=== PATIENT | female | born 2000 | race American Indian/Alaskan Native ===

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

== ENCOUNTER 2019-01-29 12:28 | Outpatient (CLI) | payer OTHER ==
[2019-01-29 13:03] VITALS: BP 98/59
[2019-01-29] MEDS ORDERED: LACTATED RINGERS 1,000 ML ONE (14:41)
[2019-01-29] MEDS ORDERED: LACTATED RINGERS 500 ML IV ONE (16:00)
[2019-01-29] MEDS ORDERED: VISTARIL PO ONE (17:19)
== END 2019-01-29 17:43 | disposition home or self-care (01) ==
LOC: TRG 12:28
PROVIDERS: ATTEND Obstetrics & Gynecology
DX: O62.9 Abnormality of forces of labor, unspecified (principal); Z3A.36 36 weeks gestation of pregnancy
CPT/HCPCS: J7120; Q0177

== ENCOUNTER 2019-02-12 00:29 | Observation (INO) | payer OTHER ==
[2019-02-12] MEDS ORDERED: LACTATED RINGERS 1,000 ML IV ONE (00:56)
[2019-02-12] MEDS ORDERED: BRETHINE ONE (02:23)
[2019-02-12] MEDS ORDERED: BRETHINE SUB-Q ONE (02:24)
--- NOTE | 2019-02-12 04:30 | Ultrasound Report ---
PROCEDURE: US OB BPP WO NON-STRESS TECHNIQUE: Sonographic evaluation for breathing, movement, tone, and amniotic flui d volume was performed. HISTORY: decrease movement COMPARISONS: None . FINDINGS: FETUS Amniotic fluid volume Normal-score 2. At least one vertical pocket >2 cm or more in vertical axis . breathing: Normal-score 2 . movement: Normal-score 2 . tone: Normal-score 2 . Score: 8 of 8 . IMPRESSION: Normal biophysical profile . This document is electronically signed by Evens Miner MD., February 12 2019 04:28:17 AM ET
--- NOTE | 2019-02-12 04:31 | Ultrasound Report ---
PROCEDURE: US OB LIMITED TECHNIQUE: Real-time limited sonographic examination was performed for evaluation of amniotic fluid. for each fetus with image documentation (1 or more fetuses). HISTORY: decrease movement COMPARISONS: None . FINDINGS: Amniotic fluid index is 18.4 cm. Fetus is in cephalic presentation. Heart rate is 138 bpm. IMPRESSION: Normal amniotic fluid volume. This document is electronically signed by Evens Miner MD., February 12 2019 04:29:29 AM ET
[2019-02-12 04:49] LABS: Hematocrit 27.3 % (30.3-42.9); Hemoglobin 9.2 gm/dl (10.1-14.3); Mean Corpuscular HGB Conc 34 % (30-34); Mean Corpuscular Volume 80 fl (79-97); Platelet Count 297 K/mm3 (140-440); Red Blood Count 3.42 M/mm3 (3.65-5.03); Red Cell Distribution Width 18.4 % (13.2-15.2)
--- NOTE | 2019-02-12 04:58 | Event Note ---
Date: 02/12/19 Late decelerations corrected with position change. Category 1 tracing at this time. Contractions q2-5 min, palpating moderate. SVE remains unchanged at 1/60/- 2. IBOW, vtx. Will continue to observe for labor and FHT monitoring.
[2019-02-12] MEDS ORDERED: LACTATED RINGERS 1,000 ML ONE (06:46)
--- NOTE | 2019-02-12 06:47 | Event Note ---
Date: 02/12/19 (false labor @ this time) SVE unchged after several hours of monitoring. BPP 8/8 CIERA 18 NST reactive Cat 1. Will give another 500 cc fluid, Morphine 4mg IM, regular diet. Pt will call her mom to come and pick her up. Reviewed early labor ctx, stressed to pt that if she has increased ctx, worsening pain, ruptured membranes, vag bleeding return to L&D. FKC and movement reviewed. Pt voiced understanding and agrees with plan. Pt has an OB appt for next week.
[2019-02-12] MEDS ORDERED: MORPHINE IM ONE ×2 (06:48→10:00)
[2019-02-12 08:36] VITALS: BP 98/55
== END 2019-02-12 10:50 | disposition home or self-care (01) ==
LOC: TRG 00:29 → LD 04:26
PROVIDERS: ADMIT Obstetrics & Gynecology; ATTEND Obstetrics & Gynecology
DX: O62.9 Abnormality of forces of labor, unspecified (principal); O36.8130 Decreased fetal movements, third trimester, not applicable or unspecified; Z3A.38 38 weeks gestation of pregnancy
CPT/HCPCS: 36415; 76815; 76819; 85027; 86592; 86850; 86900; 86901; 96372; G0378; J2270; J3105; J7120

== ENCOUNTER 2019-02-17 23:21 | Inpatient (IN) | payer OTHER ==
[2019-02-18] MEDS ORDERED: LACTATED RINGERS 1,000 ML ONE (00:23)
[2019-02-18] MEDS ORDERED: LACTATED RINGERS 1,000 ML IV SCH ×3 (01:00→19:00)
--- NOTE | 2019-02-18 05:44 | Ultrasound Report ---
PROCEDURE: US OB BPP WO NON-STRESS TECHNIQUE: Transabdominal imaging was obtained for evaluation of the biophysical profile. HISTORY: decels COMPARISONS: None FINDINGS: For breathing movements, a score of 2 out of 2 was obtained. For movements, a score of 2 out of 2 was obtained. For posture and tone, a score of 2 out of 2 was obtained. Qualitative amniotic fluid volume, a score of 2 out of 2 was obtained. The heart rate is 129 BPM. IMPRESSION: Biophysical profile score is 8 out of 8. The heart rate is 129 BPM.. This document is electronically signed by Xavi Brantley MD., February 18 2019 05:42:24 AM ET
--- NOTE | 2019-02-18 07:47 | History and Physical Report ---
History of Present Illness Date of examination: 02/18/19 Date of admission: 02/18/2019 Chief complaint: labor History of present illness: Menstrual History Regularity: regular Menses every: 30 days Duration: 4 LMP: 05/01/2018 LMP reliability: definite LMP character: normal test type: urine test Date: 07/01/2018 BC at conception: none Planned ? no EDC Calculations LMP: 02/05/2019 EDC Confirmation: 02/21/2019 Gestational Age: 31 3/7 weeks Past History : 1 Term Births: 0 Premature Births: 0 Living Children: 0 Para: 0 Mult. Births: 0 Prev : 0 Prev. attempt? 0 Aborta: 0 Elect. Ab: 0 Spont. Ab: 0 Ectopics: 0 Family History Summary: KERI - Has Family History of Diabetes - Entered On: 12/23/2018 Social History: Patient is single Smoking History: Patient has never smoked. Past Medical History: Negative Past Medical History Past Surgical History: Negative Past Surgical History Past Medical History Surgery (Non-diagnostic cardiac sonographer): Negative Past Surgical History Abnormal PAP: negative DALIA Exposure: negative Infertility: negative Uterine Anomaly: negative Uterine Surgery (not C/S): negative Other Gynecologic Problems: negative Social Hx: Patient is single Smoking History: Patient has never smoked. Infection History Hx of STD: none HIV Risk Eval: low risk Hepatitis B Risk Eval: low risk Personal hx. of genital herpes: no Partner hx. of genital herpes: no Rash, Viral, or Febrile illness since last LMP? no Varicella/Chicken Pox Status: Unknown TB Risk: no Genetic History Congenital Heart Defect: Mom: no Dad: no Michael Disease: Mom: no Dad: no Thalassemia Mom: no Dad: no Neural Tube Defect Mom: no Dad: no Down's Syndrome Mom: no Dad: no Alfredo-Sachs Mom: no Dad: no Sickle Cell Disease/Trait Mom: no Dad: no Hemophilia Mom: no Dad: no Muscular Dystrophy Mom: no Dad: no Cystic Fibrosis Mom: no Dad: no Zalma Chorea Mom: no Dad: no Mental Retardation Mom: no Dad: no Fragile X Mom: no Dad: no Other Genetic/Chromosomal Disorder Mom: no Dad: no Child w/other defect Mom: no Dad: no Enviromental Exposures Xray Exposure: no Medication, drug, or alcohol use since LMP: no Chemical/Other Exposure: no Exposure to Cat Liter: no Hx of Parvovirus (Fifth Disease): no Occupational Exposure to Children: none Active Medications: None Current Allergies (reviewed today): No known allergies Past History Past Medical History: other (see HPI) Past Surgical History: other (see HPI) CONDUCTOR AND ENGINEER History: other (see HPI) Family/Genetic History: other (see HPI) Social history: other (see HPI) - Obstetrical History Expected Date of Delivery: 02/21/19 Actual Gestation: 39 Week(s) 4 Day(s) : 2 Para: 0 Medications and Allergies Allergies Allergy/AdvReac Type Severity Reaction Status Date / Time No Known Allergies Allergy Verified 12/31/18 16:42 Home Medications Medication Instructions Recorded Confirmed Last Taken Type Vit-Fe Fumar-FA [ 1 tab PO QDAY 12/31/18 02/12/19 02/11/19 History Vitamin] Active Meds: Active Medications Butorphanol Tartrate (Stadol) 2 mg IV Q2H PRN PRN Reason: Pain , Severe (7-10) Ephedrine Sulfate (Ephedrine Sulfate) 10 mg IV Q2M PRN PRN Reason: Hypotension Fentanyl (Sublimaze) 100 mcg IV Q2H PRN PRN Reason: Labor Pain Oxytocin/Sodium Chloride (Pitocin/Ns 20 Unit/1000ml Drip) 20 units in 1,000 mls @ 125 mls/hr IV DIRECT DAVID Oxytocin/Sodium Chloride (Pitocin/Ns 30 Unit/500ml) 30 units in 500 mls @ 1 mls/hr IV TITR DAVID; Protocol Oxytocin/Sodium Chloride (Pitocin/Ns 30 Unit/500ml) 30 units in 500 mls @ 4 mls/hr IV TITR DAVID; Protocol Lactated Ringer's (Lactated Ringers) 1,000 mls @ 125 mls/hr IV DIRECT DAVID Lidocaine (Xylocaine 2%) 20 ml INFILTRATI ONCE ONE Stop: 02/18/19 07:36 Mineral Oil (Mineral Oil) 30 ml PO QHS PRN PRN Reason: Constipation Terbutaline Sulfate (Brethine) 0.25 mg SUB-Q ONCE PRN PRN Reason: Hyperstimulation/Hypertonicity Terbutaline Sulfate (Brethine) 0.25 mg IVP ONCE PRN PRN Reason: Hyperstimulation/Hypertonicity Review of Systems All systems: negative Genitourinary: contractions - Vital Signs Vital signs: Vital Signs Temp Pulse Resp BP 98.4 F 96 H 16 106/69 02/17/19 23:36 02/17/19 23:36 02/17/19 23:36 02/17/19 23:36 Temp Pulse Resp BP Pulse Ox 97.7 F 75 18 98/55 99 02/18/19 05:32 02/18/19 07:02 02/18/19 05:32 02/18/19 05:29 02/18/19 07:02 - Physical Exam Breasts: Cardiovascular: Regular rate, Normal S1, Normal S2 Lungs: Positive: Clear to auscultation, Normal air movement Abdomen: Positive: normal appearance, soft, normal bowel sounds. Negative: distention, tenderness Genitourinary (Female): Positive: normal external genitalia, normal perenium Vulva: both: normal Vagina: Positive: normal moisture. Negative: discharge Cervix: Negative: lesion, discharge Uterus: Positive: normal size, normal contour Adnexa: both: normal Anus/Rectum: Positive: normal perianal skin, heme negative. Negative: rectal mass, hemorrhoids Extremities: Positive: normal Deep Tendon Reflex Grade: Normal +2 - Obstetrical FHR: auscultation normal Uterine Contraction Monitor Mode: External Uterine Contraction Pattern: Irregular Uterine Tone Measurement Phase: Contraction Uterine Contraction Intensity: Mild Results Result Diagrams: 02/18/19 00:39 All other labs normal. Assessment and Plan Patient presents to triage with c/o contractions. Per coil winder repair, late decelerations noted on heart monitor. BPP ordered, 04/09. SVE per RN 1.5, vertex, IBOW, regular mild contractions noted. Per admitting CNM, pt being admitted for non-reassuring heart tracing and prodromal labor. Category 1 tracing noted at this time of assessment. She denies any VB or LOF. +FM. DWP reason for admission and reviewed heart tracing with patient and explained decelerations and causes. Discussed possibility of alternate route of delivery, , for distress. Patient verbalizes understanding. She agrees to proceed with pitocin induction. Routine admission orders placed in EMR. GBS negative. Dr. Turner aware of pt assessment and admission.
[2019-02-18] MEDS ORDERED: PITOCin/NS 30 UNIT/500ML 30 UNITS/500 ML BAG IV SCH ×2 (08:00→09:00)
[2019-02-18] MEDS ORDERED: PITOCin/NS 20 UNIT/1000ML DRIP 20 UNITS/1,000 ML BAG IV SCH ×2 (08:00→19:00)
[2019-02-18] MEDS ORDERED: SUBLIMAZE IV PRN (09:00)
[2019-02-18] MEDS ORDERED: BRETHINE IVP PRN (09:00)
[2019-02-18] MEDS ORDERED: XYLOCAINE 2% INFILTRATI NR (09:00)
[2019-02-18] MEDS ORDERED: MINERAL OIL PO PRN (09:00)
[2019-02-18] MEDS ORDERED: STADOL IV PRN (09:00)
[2019-02-18] MEDS ORDERED: BRETHINE SUB-Q PRN (09:00)
[2019-02-18 10:56] LABS: Hematocrit 29.8 % (30.3-42.9); Hemoglobin 9.6 gm/dl (10.1-14.3); Mean Corpuscular HGB Conc 32 % (30-34); Mean Corpuscular Volume 81 fl (79-97); Platelet Count 271 K/mm3 (140-440); Red Blood Count 3.68 M/mm3 (3.65-5.03); Red Cell Distribution Width 18.8 % (13.2-15.2)
--- NOTE | 2019-02-18 14:02 | Event Note ---
Date: 02/18/19 Pt reports SROM, clear fluid at 1200, nitrazine +, clear fluid noted on pt thighs and on exam glove. SVE is 2.5/70/-2, forebag noted, ruptured with amnihook for placement of internal monitors to better monitor decelerations and management of pitocin. DWP pros and cons of internal monitors, she agrees to placement. IUPC and FSE placed without difficulty. Late decerations continued, pitocin is off, pt placed in lateral position, LR fluid bolus and O2 on. Decelerations resolved with interventions, minimal variability noted. Dr. Turner notified of assessment. Will continue to monitor with pitocin off at this time. DWP again possibility of c/s delivery. Questions encouraged and answered. She verbalizes understanding.
[2019-02-18] MEDS ORDERED: NARCAN 2 MG/2 ML IV PRN (14:15)
[2019-02-18] MEDS ORDERED: fentaNYL-BUPIV 2 MCG/ML-0.125% 200 MCG/100 ML BAG EPIDURAL SCH (15:00)
[2019-02-18] MEDS ORDERED: MARCAINE 0.25% INFILTRATI ONE (15:16)
--- NOTE | 2019-02-18 15:57 | Event Note ---
Date: 02/18/19 tracing reviewed with patient explained the heart rate deceleration and it's indication of low oxygen and the indiction for giving her oxygen. Explained the reason for stopping pitocin due to the late decelerations and repeated late deceleration could case harm to her baby including learning and developmental disabilities, respiratory distress or even or . Patient states her desire to have a vaginal delivery. Recheck patient and replaced her FSE. cx 3.5/60/-3. Discussed indication for section. Patient informed the risks of the surgery include bleeding possibly bleeding heavy enough to require blood transfusion, infection possible damage to bowel bladder ureter. All questions answered. Patient agrees to proceed with a section. When I returned to her room with the surgery consent the patient's mother instructed her not to sign it. The patient's mother states that she could see the heart tracing and she knows that the baby's heart rate was fine. Again explained and patient and showed the patient and her mother the recurrent late decelerations on the heart rate paper tracing but again the mother stated that her interpretation of the tracings that the "the baby's heart rate is fine and not going down right now. Again try explain the the risks of accumulations of late deceleration but the patient's mother states that she knew better and would not allow the patient to proceed with the section now
[2019-02-18] MEDS ORDERED: ZOFRAN IV PRN (16:34)
[2019-02-18] MEDS ORDERED: MORPHINE IV PRN (16:34)
[2019-02-18] MEDS ORDERED: NARCAN 0.4 MG/1 ML IV PRN (16:34)
[2019-02-18] MEDS ORDERED: PHENERGAN PR PRN (16:34)
[2019-02-18] MEDS ORDERED: PHENERGAN PO PRN (16:34)
[2019-02-18] MEDS ORDERED: DILAUDID IV PRN (16:34)
--- NOTE | 2019-02-18 16:34 | Anesthesia Day of Surgery ---
Anesthesia Day of Surgery - Day of Surgery Patient Examined: Yes Patient H&P Reviewed: Yes Patient is NPO: No
--- NOTE | 2019-02-18 16:34 | Anesthesia Consultation ---
Anesthesia Consult and Med Hx Date of service: 02/18/19 - Airway Anesthetic Teeth Evaluation: Good ROM Head & Neck: Adequate Mental/Hyoid Distance: Adequate Mallampati Class: Class II Intubation Access Assessment: Good - Pulmonary Exam CTA: Yes - Cardiac Exam Cardiac Exam: RRR - Pre-Operative Health Status ASA Pre-Surgery Classification: ASA2 Proposed Anesthetic Plan: Epidural - Pulmonary Hx Asthma: No - Cardiovascular System Hx Hypertension: No - Central Nervous System Hx Seizures: No Hx Psychiatric Problems: No - Endocrine Hx Renal Disease: No Hx Hypothyroidism: No Hx Hyperthyroidism: No - Hematic Hx Anemia: No Hx Sickle Cell Disease: No - Other Systems Hx Alcohol Use: No
[2019-02-18] MEDS ORDERED: XYLOCAINE 2%/ EPI 1:200,000 INFILTRATI ONE (16:39)
[2019-02-18] MEDS ORDERED: SODIUM CHLORIDE FLUSH SYRINGE 10 ML IV NR (17:00)
--- NOTE | 2019-02-18 18:09 | Event Note ---
Date: 02/18/19 Reviewed heart tracing and recent late decelerations with patient again. Explained risks of continued late decelerations including, but not limited to: , decreased oxygenation to brain and intermediate brain damage/disturbed neurologic function - encephalopathy, damage to other organs, cerebral palsy, respiratory problems at , seizures, etc. Patient continues to refuse section. Reviewed surgical consent in detail with patient. Explained to patient that risks of surgery are increased in a stat situation, and we would rather perform surgery in a more calm and controlled environment. Encouraged questions and discussion, all patient's questions answered. Encouraged patient to read over consent. Patient agrees, states that she will read it and call RN or CNM to witness when she feels she is ready to sign. FHTs are back to category [address] Turner notified of FHT's, assessment, and discussion with patient. Will continue to monitor at this time.
[2019-02-18] MEDS ORDERED: BICITRA PO ONE (18:30)
[2019-02-18] MEDS ORDERED: REGLAN IV ONE (18:30)
[2019-02-18] MEDS ORDERED: PEPCID IV ONE ×2 (18:30→18:33)
[2019-02-18] MEDS ORDERED: BICITRA ONE (18:32)
[2019-02-18] MEDS ORDERED: REGLAN ONE (18:32)
[2019-02-18] MEDS ORDERED: ANCEF/STERILE WATER 2 GM/20 ML 2 GM/20 ML SYRINGE IV ONE (18:33)
[2019-02-18] MEDS ORDERED: NACL 0.9% IR ONE (18:40)
[2019-02-18] MEDS ORDERED: WATER FOR IRRIG STERILE IR ONE (18:40)
--- NOTE | 2019-02-18 18:43 | Event Note ---
Date: 02/18/19 Prolonged deceleration with no return to baseline despite pitocin off, multiple position changes, O2, LR bolus, scalp stimulation. SVE 4.5/90/-2. Patient verbalizes that she understands it is our recommendation that a section be performed stat at this time. Patient continues to refuse . Dr. Turner called to bedside. Ongoing discussion of risks to fetus with prolonged heart decelerations while position changes continued in attempts to increase heart rate. Dr. Turner arrived to bedside, continued discussion of risks to fetus with prolonged deceleration and need for , patient verbalizes that she understands risks involved. After more discussion, patient signing consents for . Nursing staff at bedside to assist with OR prep. Patient verbally agrees to proceed with , taken to OR via labor bed.
[2019-02-18] MEDS ORDERED: ANCEF/STERILE WATER 2 GM/20 ML 2 GM/20 ML SYRINGE IV NR (19:00)
[2019-02-18] MEDS ORDERED: DILAUDID ONE (19:22)
[2019-02-18] MEDS ORDERED: TORADOL ONE (19:24)
[2019-02-18] MEDS ORDERED: BENADRYL ONE (19:24)
[2019-02-18] MEDS ORDERED: ZOFRAN ONE (19:24)
--- NOTE | 2019-02-18 19:24 | Operative Report ---
Operative Report Operative Report: Date of procedure: 02/18/2019 Pre-operative diagnosis: Intrauterine at 39weeks with nonreassuring heart tracing remote from vaginal delivery Post-operative diagnosis: Same Procedure name(s): Primary low transverse section Surgeon: Ashwin Turner MD Transfer Specialist: Anesthesia: Epidural EBL: 500 mL Complications: None Findings: Patient with normal uterus tubes and ovaries bilaterally. Male infant weight 8 lbs. 14 oz. Apgars 7 at 1 minute and 8 at 5 minutes Specimen(s): Placenta Indications: Patient was admitted with concern of late decelerations and overall heart tracing. During the augmentation of her labor there were several occasions of late deceleration of heart tracing which required stopping the Pitocin. Patient also has spontaneous late decelerations without the infusion of Pitocin going. Several hours before the section was performed we had several conversations with the patient's about the indication for section. The patient had agreed to move forward with section due to the nonreassuring nature of the heart tracing but the patient's mother intervene and told her not to do it staying that the baby's heart rate was fine according to the patient's mother evaluation of the heart tracing. During this several hours delay of performing the procedure the heart tracing worsened with recurrent late decelerations and deepening of the decelerations. The patient finally decided to move forward with a section due to her concern about her unborn infant, despite the patient's mother's objections. Procedure: The patient was brought to the operating room in a stat manner. Her epidural was dosed was without any complications. She was then placed in left lateral tilt. Prepped and draped in the usual sterile manner. After testing for adequate anesthesia level, a Pfannenstiel incision was made. This incision was taken down to the fascia. The fascia was then nicked in the midline. This incision was extended out laterally with Moseley scissors. The fascia was then s eparated sharply and bluntly from the underlying rectus muscles. The rectus muscles were bluntly and sharply . The peritoneum was then entered with the horizontal resaw operator's fingers. This incision was spread vertically with care not to damage the bladder below. The Kevin self-retaining tractor was then placed without any difficulty. The bladder flap was then formed sharply and bluntly with Metzenbaum scissors. A transverse incision was made in lower uterine segment. This incision was extended laterally with the operators fingers. The amniotic sac was then entered bluntly with the horizontal resaw operator's fingers. The infant was delivered from the vertex position. Bulb suction on the mother's abdomen. Cord was double clamped and cut. The infant was then passed to the nursery personnel who were in attendance. The above scores were given by the nursery personnel. The placenta was then bluntly removed. The uterus was then externalized and wiped clean the remaining products. The uterine incision was closed in layers. The first incision was closed in a locking manner using 0 Vicryl. This was followed by imbricating stitch also with 0 Vicryl. This closure was hemostatic. The bladder flap was copiously irrigated and found to be hemostatic. The pelvis was copiously irrigated and found to be hemostatic. The uterus was then placed back to the patient's abdomen. The retractors were removed. The rectus muscles were inspected and found to be hemostatic. The fascia was then closed in a running manner using 0 Vicryl. This incision was hemostatic irrigation Bovie. The skin was reapproximated with 4-0 Vicryl subcuticularly. The patient tolerated procedure well. Her urine was clear. The was admitted to the nursery. The patient was accompanied to recovery room in good condition. Instrument count correct times 3.
--- NOTE | 2019-02-18 19:26 | Procedure Note ---
OB Delivery Note - Delivery Date of Delivery: 02/18/19 Surgeon: RUSLAN DUNBAR Estimated blood loss: 500cc - Section Preop diagnosis: nonreassuring FHR tracing Postop diagnosis: same section procedure: section, primary low transverse Disposition: PACU Complications: none - B at 1 minute: 7 at 5 minutes: 8 Gender: Male (8lbs 14oz)
--- NOTE | 2019-02-18 20:25 | Post Anesthesia Evaluation ---
- Post Anesthesia Evaluation Patient Participated: Yes Airway Patent: Yes Stable Respiratory Function: Yes Nausea/Vomiting: No Temp > 96.8F: Yes Pain Manageable: Yes Adequeate Hydration: Yes Anesthesia Complications: No Block Receding Appropriately: Yes Patient on Ventilator: No
[2019-02-19] MEDS ORDERED: D5LR 1,000 ML IV SCH (02:56)
[2019-02-19] MEDS ORDERED: MILK OF MAGNESIA PO PRN (02:56)
[2019-02-19] MEDS ORDERED: SODIUM CHLORIDE FLUSH SYRINGE 10 ML IV NR (02:56)
[2019-02-19] MEDS ORDERED: NORCO 5/325 PO PRN (02:56)
[2019-02-19] MEDS ORDERED: PITOCin/NS 20 UNIT/1000ML DRIP 20 UNITS/1,000 ML BAG IV SCH (02:56)
[2019-02-19] MEDS ORDERED: MYLICON PO PRN (02:56)
[2019-02-19] MEDS ORDERED: ZOFRAN IV PRN (02:56)
[2019-02-19] MEDS ORDERED: TUCKS PAD TP PRN (02:56)
[2019-02-19] MEDS ORDERED: ANUCORT-HC PR PRN (02:56)
[2019-02-19] MEDS ORDERED: LANSINOH TP PRN (02:56)
[2019-02-19] MEDS ORDERED: NARCAN 0.4 MG/1 ML IV PRN (02:56)
[2019-02-19] MEDS ORDERED: BOOSTRIX IM ONE (06:00)
[2019-02-19] MEDS: ANCEF/NS 1 GM/50 ML 1 GM/50 ML BAG IV SCH ×2 (06:10→13:53)
[2019-02-19 06:13] LABS: Hematocrit 23.5 % (30.3-42.9); Hemoglobin 7.8 gm/dl (10.1-14.3)
[2019-02-19] MEDS: TORADOL IV SCH ×2 (07:21→09:54)
--- NOTE | 2019-02-19 07:55 | Progress Note ---
Assessment and Plan 18y/o 1st day postop, c/o that PO pain medication is not helping reduce her pain to a manageable level. Will increase dose and continue to monitor. Pt seeming to be bonding well with , encouraged continue . Lochia scant, fundus firm, Dressing D&I. Continue postop pathway. - Patient Problems (1) delivery delivered Current Visit: Yes Status: Acute Plan to address problem: Advance diet and activity as tolerated remove dressing after shower Continue postop pathway (2) Anemia Current Visit: Yes Status: Acute Qualifiers: Anemia type: iron deficiency Plan to address problem: H&H 7.8/23.5 existing anemia from before delivery asymptomatic FE ordered Subjective - Subjective Date of service: 02/19/19 Principal diagnosis: postop day #1 s/p primary c/s Patient reports: appetite normal, voiding normally, flatus, pain poorly controlled, ambulating normally, no dizzy ambulation, no nauseated [place]: doing well, nursing well Objective - Vital Signs Latest vital signs: Vital Signs Temp Pulse Resp BP Pulse Ox 02/19/19 07:10 18 02/19/19 06:10 18 02/19/19 04:39 106 H 20 120/78 72 L 02/19/19 04:30 98.4 F 02/18/19 23:12 18 02/18/19 22:42 18 02/18/19 21:03 98.2 F 96 H 20 117/76 100 02/18/19 20:40 97.8 F 97 H 16 98/63 100 02/18/19 20:25 92 H 10 L 108/63 100 02/18/19 20:10 74 13 97/63 100 02/18/19 19:57 89 17 87/50 100 02/18/19 19:45 78 16 94/57 100 02/18/19 19:37 98.0 F 85 19 85/49 100 02/18/19 18:29 94 H 99 02/18/19 18:28 86 125/74 02/18/19 18:24 102 H 100 02/18/19 18:19 77 100 02/18/19 18:14 77 120/74 100 02/18/19 18:09 76 100 02/18/19 18:04 73 100 02/18/19 17:59 87 100 06/19/19 17:58 73 110/68 02/18/19 17:54 72 100 02/18/19 17:49 69 100 02/18/19 17:44 77 100 02/18/19 17:43 72 113/71 02/18/19 17:39 78 100 02/18/19 17:34 77 100 02/18/19 17:29 71 100 02/18/19 17:24 64 100 02/18/19 17:19 71 100 02/18/19 17:14 66 100 02/18/19 17:09 85 100 02/18/19 17:04 72 100 02/18/19 17:00 98.3 F 18 02/18/19 16:59 76 100 02/18/19 16:54 72 100 02/18/19 16:49 77 100 02/18/19 16:44 75 100 02/18/19 16:39 69 100 02/18/19 16:34 71 100 02/18/19 16:29 70 100 02/18/19 16:24 71 100 02/18/19 16:19 81 100 02/18/19 16:14 73 100 02/18/19 16:09 79 100 02/18/19 16:04 93 H 100 02/18/19 15:59 86 100 02/18/19 15:54 87 100 02/18/19 15:49 86 100 02/18/19 15:44 89 100 02/18/19 15:39 74 101/56 100 02/18/19 15:30 97.9 F 16 02/18/19 15:09 74 100 02/18/19 15:04 73 100 02/18/19 14:59 74 100 02/18/19 14:54 98 H 100 02/18/19 14:49 81 100 02/18/19 14:44 73 100 02/18/19 14:39 93 H 100 02/18/19 14:28 94 H 92 02/18/19 14:23 76 96 02/18/19 14:18 77 100 02/18/19 14:13 53 L 61 L 02/18/19 14:08 77 100 02/18/19 14:03 77 100 02/18/19 13:58 90 100 02/18/19 13:26 89 100 02/18/19 13:20 74 100 02/18/19 13:16 83 100 02/18/19 13:10 81 100 02/18/19 13:06 84 100 02/18/19 13:00 98.0 F 79 18 100 02/18/19 12:56 93 H 100 02/18/19 12:50 98 H 100 02/18/19 12:46 94 H 100 02/18/19 12:40 90 100 02/18/19 12:36 69 100 02/18/19 12:34 83 111/72 02/18/19 12:31 97 H 100 02/18/19 12:26 87 100 02/18/19 12:20 80 100 02/18/19 12:04 75 111/75 02/18/19 11:56 74 99 02/18/19 11:55 27 L 02/18/19 11:50 68 100 02/18/19 11:44 71 95 02/18/19 11:40 79 100 02/18/19 11:34 81 112/75 100 02/18/19 11:30 98.4 F 80 18 97 02/18/19 11:29 77 92 02/18/19 11:23 73 100 02/18/19 11:18 79 99 02/18/19 11:13 71 100 02/18/19 11:08 71 100 02/18/19 11:04 79 100 02/18/19 10:54 71 100 02/18/19 10:51 98.2 F 16 02/18/19 10:49 73 100 02/18/19 10:44 72 100 02/18/19 10:39 84 100 02/18/19 10:34 76 100 02/18/19 10:29 88 100 02/18/19 10:25 77 100 02/18/19 10:20 82 100 02/18/19 10:14 89 100 02/18/19 10:09 77 100 02/18/19 10:04 73 100 02/18/19 10:00 75 100 02/18/19 09:54 76 100 02/18/19 09:49 94 H 100 02/18/19 09:45 99 H 100 02/18/19 09:39 87 100 02/18/19 09:34 81 100 02/18/19 09:29 81 99 02/18/19 09:26 81 117/82 02/18/19 09:24 54 L 94 Intake and Output 02/18/19 02/18/19 02/19/19 15:59 23:59 07:59 Intake Total 10 300 240 Output Total 300 230 Balance -290 70 240 Intake: IV 10 300 PITOCin/NS 30 UNIT/500ML 10 30 units In 500 ml @ 4 mls/hr IV TITR DAVID Rx#: [id number] Oral 240 Output: Urine 300 230 Uretheral (Fleming) 300 200 Other: Total, Intake Amount 240 Estimated Blood Loss 400 - Exam Breasts: Present: normal Cardiovascular: Present: Regular rate Lungs: Present: Clear to auscultation, Normal air movement Abdomen: Present: normal appearance, soft Vulva: both: normal Uterus: Present: normal, firm, fundal height at umbilicus Extremities: Present: normal Deep Tendon Reflex Grade: Normal +2 Incision: Present: normal, dry, dressed - Labs Labs: Abnormal lab results 02/18/19 02/19/19 Range/Units 00:39 05:53 Hgb 9.6 L 7.8 L (10.1-14.3) gm/dl Hct 29.8 L 23.5 L D (30.3-42.9) % MCH 26 L (28-32) pg RDW 18.8 H (13.2-15.2) %
[2019-02-19] MEDS: FEOSOL PO SCH (09:55)
[2019-02-19] MEDS: IBUPROFEN PO PRN ×2 (17:09→23:45)
[2019-02-19] MEDS: NORCO 5/325 PO PRN ×2 (17:10→23:46)
[2019-02-20] MEDS: IBUPROFEN PO PRN (05:49)
--- NOTE | 2019-02-20 08:50 | Progress Note ---
Subjective - Subjective Date of service: 02/20/19 Principal diagnosis: postop day #2 s/p primary c/s Interval history: Menstrual History Regularity: regular Menses every: 30 days Duration: 4 LMP: 05/01/2018 LMP reliability: definite LMP character: normal test type: urine test Date: 07/01/2018 BC at conception: none Planned ? no EDC Calculations LMP: 02/05/2019 EDC Confirmation: 02/21/2019 Gestational Age: 31 3/7 weeks Past History : 1 Term Births: 0 Premature Births: 0 Living Children: 0 Para: 0 Mult. Births: 0 Prev : 0 Prev. attempt? 0 Aborta: 0 Elect. Ab: 0 Spont. Ab: 0 Ectopics: 0 Family History Summary: KERI - Has Family History of Diabetes - Entered On: 12/23/2018 Social History: Patient is single Smoking History: Patient has never smoked. Past Medical History: Negative Past Medical History Past Surgical History: Negative Past Surgical History Past Medical History Surgery (Non-travel nurse): Negative Past Surgical History Abnormal PAP: negative DALIA Exposure: negative Infertility: negative Uterine Anomaly: negative Uterine Surgery (not C/S): negative Other Gynecologic Problems: negative Social Hx: Patient is single Smoking History: Patient has never smoked. Infection History Hx of STD: none HIV Risk Eval: low risk Hepatitis B Risk Eval: low risk Personal hx. of genital herpes: no Partner hx. of genital herpes: no Rash, Viral, or Febrile illness since last LMP? no Varicella/Chicken Pox Status: Unknown TB Risk: no Genetic History Congenital Heart Defect: Mom: no Dad: no Michael Disease: Mom: no Dad: no Thalassemia Mom: no Dad: no Neural Tube Defect Mom: no Dad: no Down's Syndrome Mom: no Dad: no Alfredo-Sachs Mom: no Dad: no Sickle Cell Disease/Trait Mom: no Dad: no Hemophilia Mom: no Dad: no Muscular Dystrophy Mom: no Dad: no Cystic Fibrosis Mom: no Dad: no [place] Chorea Mom: no Dad: no Mental Retardation Mom: no Dad: no Fragile X Mom: no Dad: no Other Genetic/Chromosomal Disorder Mom: no Dad: no Child w/other defect Mom: no Dad: no Enviromental Exposures Xray Exposure: no Medication, drug, or alcohol use since LMP: no Chemical/Other Exposure: no Exposure to Cat Liter: no Hx of Parvovirus (Fifth Disease): no Occupational Exposure to Children: none Active Medications: None Current Allergies (reviewed today): No known allergies Patient reports: appetite normal, voiding normally, pain well controlled, flatus, ambulating normally [place]: doing well Objective - Vital Signs Latest vital signs: Vital Signs Temp Pulse Resp BP Pulse Ox 02/20/19 05:49 20 02/19/19 23:48 98.2 F 78 20 105/63 99 02/19/19 23:46 20 02/19/19 23:45 20 02/19/19 17:10 20 02/19/19 17:09 20 02/19/19 16:23 98.1 F 89 20 115/82 100 02/19/19 11:42 98.2 F 100 H 20 105/71 100 02/19/19 09:54 20 Intake and Output 02/19/19 02/20/19 02/20/19 23:59 07:59 15:59 Intake Total 120 240 Balance 120 240 Intake: Oral 120 240 Other: Total, Intake Amount 120 240 # Voids Void 1 1 - Exam Breasts: Present: normal Cardiovascular: Present: Regular rate, Normal S1, Normal S2 Lungs: Present: Clear to auscultation, Normal air movement Abdomen: Present: normal appearance, soft, normal bowel sounds Vulva: both: normal Uterus: Present: normal, firm, fundal height below umbilicus Extremities: Present: normal Deep Tendon Reflex Grade: Normal +2 Incision: Present: normal, dry, intact Comments: POD 2 s/p primary c/s. Patient reports feeling well, denies any complaints or concerns at this time. Patient reports "I have no pain". Fundus is firm, ML, U/2. Vaginal bleeding is scant, patient denies any heavy bleeding or clots. Incision is well-approximated, healing well, no bleeding or drainage, no s/s of infection. Steri strips in place. DWP proper hygiene/incision care. She reports breast and bottle feeding, denies any breast complaints. VSSAF. Reviewed post delivery labs with patient. She denies any dizziness or feeling faint with ambulation or position changes. She desires discharge today.
--- NOTE | 2019-02-20 08:55 | Discharge Summary ---
Providers - Providers Date of Admission: 02/18/19 09:23 Date of discharge: 02/20/19 (pt desires d/c, may discharge home 48 hrs post delivery) Attending physician: BRANDON TAYLOR 02/19/19 02:56 Consult to Parole Supervisor [CONS] Routine Reason For Exam: Primary care physician: JOHAN WALL Hospitalization Reason for admission: non reassuring heart tracing, prodromal labor Condition: Good Pertinent studies: post delivery H&H 7.8/23.5, pre-existing anemia on admission exacerbated by acute blood loss at delivery. pt is asymptomatic, Fe ordered. Procedures: primary c/s for non reassuring heart tracing Hospital course: uncomplicated primary c/s and course Disposition: DC-01 TO HOME OR SELFCARE Core Measure Documentation - Palliative Care Palliative Care/ Comfort Measures: Not Applicable - Core Measures Any of the following diagnoses?: none Exam - Constitutional Vitals: Temp Pulse Resp BP Pulse Ox 98.2 F 78 20 105/63 99 02/19/19 23:48 02/19/19 23:48 02/20/19 05:49 02/19/19 23:48 02/19/19 23:48 General appearance: Present: no acute distress, well-nourished - EENT Eyes: Present: PERRL ENT: hearing intact, clear oral mucosa - Neck Neck: Present: supple, normal ROM - Respiratory Respiratory effort: normal Respiratory: bilateral: CTA - Cardiovascular Heart Sounds: Present: S1 & S2. Absent: rub, click - Extremities Extremities: pulses symmetrical, No edema Peripheral Pulses: within normal limits - Abdominal General gastrointestinal: Present: soft, non-tender, non-distended, normal bowel sounds Female genitourinary: Present: normal - Integumentary Integumentary: Present: clear, warm, dry - Musculoskeletal Musculoskeletal: gait normal, strength equal bilaterally - Psychiatric Psychiatric: appropriate mood/affect, intact judgment & insight - Neurologic Neurologic: CNII-XII intact, moves all extremities - Additional findings Additional findings: POD 2 s/p primary c/s. Patient reports feeling well, denies any complaints or concerns at this time. Patient reports "I have no pain". Fundus is firm, ML, U/2. Vaginal bleeding is scant, patient denies any heavy bleeding or clots. Incision is well-approximated, healing well, no bleeding or drainage, no s/s of infection. Steri strips in place. DWP proper hygiene/incision care. She reports breast and bottle feeding, denies any breast complaints. VSSAF. Reviewed post delivery labs with patient. She denies any dizziness or feeling faint with ambulation or position changes. She desires discharge today. Plan Activity: advance as tolerated Diet: regular Wound: open to air, keep clean and dry Follow up with: JOHAN WALL MD [Primary Care Provider] - 7 Days (Congratulations! Please call [phone] to schedule your post-op incision check in 1 week. Please sc hedule your son's incision check in 1 week. Bring EMLA cream prescription with you to his appointment and await further instructions for use. Call with any questions or concerns. ) Prescriptions: Docusate Sodium [Colace] 100 mg PO BID PRN #60 capsule PRN Reason: Constipation Ferrous Sulfate [Feosol 325 MG tab] 325 mg PO BID #60 tablet Ibuprofen [Motrin 800 MG tab] 800 mg PO Q6H PRN #30 tablet PRN Reason: Pain
[2019-02-20] MEDS ORDERED: COLACE PO SCH (10:00)
[2019-02-20] MEDS: FEOSOL PO SCH (17:15)
[2019-02-20] MEDS: NORCO 5/325 PO PRN (17:41)
[2019-02-20 17:43] VITALS: BP 110/71
== END 2019-02-20 18:59 | disposition home or self-care (01) | DRG 765 ==
LOC: TRG 23:21 → LD 02-18 09:23 → OB 02-18 21:14
PROVIDERS: ADMIT Obstetrics & Gynecology; ATTEND Obstetrics & Gynecology
PROC: 10D00Z1 Extraction of Products of Conception, Low, Open Approach (ICD-10-PCS; principal; 2019-02-18)
PROC: 10H07YZ Insertion of Other Device into Products of Conception, Via Natural or Artificial Opening (ICD-10-PCS; 2019-02-18)
PROC: 3E0234Z Introduction of Serum, Toxoid and Vaccine into Muscle, Percutaneous Approach (ICD-10-PCS; 2019-02-19)
DX: O76 Abnormality in fetal heart rate and rhythm complicating labor and delivery (principal); D62 Acute posthemorrhagic anemia; O99.02 Anemia complicating childbirth; D50.9 Iron deficiency anemia, unspecified; Z3A.39 39 weeks gestation of pregnancy; Z37.0 Single live birth; Z83.3 Family history of diabetes mellitus; Z23 Encounter for immunization
CPT/HCPCS: 36415; 76819; 85014; 85018; 85027; 86592; 86850; 86900; 86901; 88307; 90715; G0378; J0690; J1170; J1200; J1885; J2405; J2590; J2765; J3010; J7120; J7121

== ENCOUNTER 2019-05-06 21:38 | Emergency (ER) | payer MEDICAID, OTHER ==
--- NOTE | 2019-05-06 21:45 | Emergency Department Report ---
Blank Doc - Documentation Documentation: This is a 18-year-old female that presents with right finger parenchyma. This initial assessment/diagnostic orders/clinical plan/treatment(s) is/are subject to change based on patient's health status, clinical progression and re- assessment by fellow clinical providers in the ED. Further treatment and workup at subsequent clinical providers discretion. Patient/guardians urged not to elope from the ED as their condition may be serious if not clinically assessed and managed. Initial orders include: 1- Patient sent to [facility] for further evaluation and treatment
[2019-05-06] MEDS ORDERED: KEFLEX PO ONE (23:23)
[2019-05-06] MEDS ORDERED: IBUPROFEN PO ONE (23:23)
[2019-05-06] MEDS ORDERED: XYLOCAINE 1% MPF 5 mL INFILTRATI ONE (23:23)
--- NOTE | 2019-05-06 23:56 | Emergency Department Report ---
ED Extremity Problem HPI - General Chief complaint: Extremity Problem,Nontraumatic Stated complaint: RT FINGER SWOLLEN Time Seen by Provider: 05/06/19 21:44 Source: patient Mode of arrival: Ambulatory Limitations: No Limitations - History of Present Illness Initial comments: Patient is a 18-year-old -[place]is[place] female with no past medical history w ho presents to the ED with painful swollen erythematous rash with fluctuance on his right middle finger for the last 4 days. Patient states that the pain and swelling have worsened in the last 2 days. Patient admits to a habitual fingernail biting behavior and suspect this may have come from biting her fingernails. Patient denies fever, chills, nausea, vomiting, traumatic injury, dizziness, numbness and tingling or weakness of her right middle finger. MD Complaint: extremity pain (right middle finger swelling and rash), extremity swelling (right middle finger swelling, pain and rash) -: Sudden, days(s) (4) Location: right (right middle finger) History of Same: No -: No arthralgia, No fever, No associated dyspnea, No associated chest pain Radiation: distal (distal right middle finger swelling and pain) Severity scale (0 -10): 4 Quality: aching, sharp, constant Consistency: constant Improves with: nothing Worsens with: nothing Associated Symptoms: denies other symptoms - Related Data Home Medications Medication Instructions Recorded Confirmed Last Taken Vit-Fe Fumar-FA [ 1 tab PO QDAY 12/31/18 02/19/19 02/11/19 Vitamin] Previous Rx's Medication Instructions Recorded Last Taken Type Ibuprofen [Motrin 800 MG tab] 800 mg PO Q6H PRN #30 tablet 02/18/19 Unknown Rx Docusate Sodium [Colace] 100 mg PO BID PRN #60 capsule 02/20/19 Unknown Rx Ferrous Sulfate [Feosol 325 MG tab] 325 mg PO BID #60 tablet 02/20/19 Unknown Rx Ibuprofen [Motrin] 600 mg PO Q8H PRN #20 tablet 05/06/19 Unknown Rx cephALEXin [Keflex] 500 mg PO Q8HR #30 cap 05/06/19 Unknown Rx Allergies Allergy/AdvReac Type Severity Reaction Status Date / Time No Known Allergies Allergy Verified 12/31/18 16:42 ED Review of Systems ROS: Stated complaint: RT FINGER SWOLLEN Other details as noted in HPI Constitutional: denies: chills, fever Eyes: denies: eye pain, eye discharge, vision change ENT: denies: ear pain, throat pain Respiratory: denies: cough, shortness of breath, wheezing Cardiovascular: denies: chest pain, palpitations Endocrine: no symptoms reported Gastrointestinal: denies: abdominal pain, nausea, diarrhea Genitourinary: denies: urgency, dysuria, discharge Musculoskeletal: arthralgia (right middle finger pain and swelling). denies: back pain, joint swelling Skin: rash (erythematous swollen fluctuant maculopapular rash on distal right middle finger). denies: lesions Neurological: denies: headache, weakness, paresthesias Psychiatric: denies: anxiety, depression Hematological/Lymphatic: denies: easy bleeding, easy bruising ED Past Medical Hx - Past Medical History Previous Medical History?: No Hx Hypertension: No Hx Diabetes: No Hx Deep Vein Thrombosis: No Hx Renal Disease: No Hx Sickle Cell Disease: No Hx Seizures: No Hx Asthma: No Hx HIV: No - Surgical History Past Surgical History?: No - Social History Smoking Status: Never Smoker Substance Use Type: None - Medications Home Medications: Home Medications Medication Instructions Recorded Confirmed Last Taken Type Vit-Fe Fumar-FA [ 1 tab PO QDAY 12/31/18 02/19/19 02/11/19 History Vitamin] Ibuprofen [Motrin 800 MG tab] 800 mg PO Q6H PRN #30 tablet 02/18/19 Unknown Rx Docusate Sodium [Colace] 100 mg PO BID PRN #60 capsule 02/20/19 Unknown Rx Ferrous Sulfate [Feosol 325 MG tab] 325 mg PO BID #60 tablet 02/20/19 Unknown Rx Ibuprofen [Motrin] 600 mg PO Q8H PRN #20 tablet 05/06/19 Unknown Rx cephALEXin [Keflex] 500 mg PO Q8HR #30 cap 05/06/19 Unknown Rx ED Physical Exam - General Limitations: No Limitations General appearance: alert, in no apparent distress - Head Head exam: Present: atraumatic, normocephalic, normal inspection - Eye Eye exam: Present: normal appearance, PERRL, EOMI Pupils: Present: normal accommodation - ENT ENT exam: Present: normal exam, normal orophraynx, mucous membranes moist, TM's normal bilaterally, normal external ear exam - Neck Neck exam: Present: normal inspection, full ROM - Respiratory Respiratory exam: Present: normal lung sounds bilaterally. Absent: respiratory distress, wheezes, rales, rhonchi, chest wall tenderness, accessory muscle use, decreased breath sounds, prolonged expiratory - Cardiovascular Cardiovascular Exam: Present: regular rate, normal rhythm, normal heart sounds. Absent: systolic murmur, diastolic murmur, rubs, gallop - GI/Abdominal GI/Abdominal exam: Present: soft, normal bowel sounds. Absent: distended, tenderness, rebound, hyperactive bowel sounds, hypoactive bowel sounds, mass, bruit - Rectal Rectal exam: Present: deferred - Extremities Exam Extremities exam: Present: normal inspection, full ROM, tenderness (swollen tender erythematous fluctuant maculopapular rash on distal right middle finger), normal capillary refill, joint swelling - Back Exam Back exam: Present: normal inspection, full ROM. Absent: tenderness, CVA tenderness (R), CVA tenderness (L), muscle spasm, vertebral tenderness - Neurological Exam Neurological exam: Present: alert, oriented X3, CN II-XII intact, normal gait, reflexes normal - Psychiatric Psychiatric exam: Present: normal affect, normal mood - Skin Skin exam: Present: warm, dry, intact, normal color, rash (Erythematous maculo papular rash on distal right middle finger) ED Course Vital Signs 05/06/19 05/06/19 21:44 23:32 Temperature 98.2 F Pulse Rate 97 H Respiratory 16 16 Rate Blood Pressure 105/61 O2 Sat by Pulse 97 Oximetry - Reevaluation(s) Reevaluation #1: 05/07/19 00:07 Patient is a 18 yo AA female who presents to the ED with swollen erythematous painful rash on distal right middle finger for the last 4 days. Patient is alert and oriented x 3 and is in no acute distress. Patient was treated for pain and received initial oral antibiotic dose. The distal right middle finger rash was incised and drained protocol and the patient tolerated the procedure well. The wound was then dressed appropriately and the patient discharged home in medications and antibiotics and advised to follow-up with her primary care physician in 7-10 days for reevaluation. Patient was advised to return to the ED immediately if symptoms get worse. - I & D Right Distal Finger Type of Procedure: Simple Site: Distal right middle finger Blade Size: 11 I & D Procedure: betadine prep, sterile drapes applied, sterile dressing applied, gauze wick placed Progress: Patient tolerated procedure well. Wound dressed appropriately and patient discharged home on pain medications and oral antibiotics. Patient neurovascularly intact after procedure. ED Medical Decision Making - Medical Decision Making Patient is a 18 yo AA female who presents to the ED with swollen erythematous painful rash on distal right middle finger for the last 4 days. Patient is alert and oriented x 3 and is in no acute distress. Patient was treated for pain and received initial oral antibiotic dose. The distal right middle finger rash was incised and drained protocol and the patient tolerated the procedure well. The wound was then dressed appropriately and the patient discharged home in medications and antibiotics and advised to follow-up with her primary care physician in 7-10 days for reevaluation. Patient was advised to return to the ED immediately if symptoms get worse. - Differential Diagnosis cellulitis of finger; Paronychia of right middle finger Critical care attestation.: If time is entered above; I have spent that time in minutes in the direct care of this critically ill patient, excluding procedure time. ED Disposition Clinical Impression: Paronychia of right middle finger, Cellulitis of right middle finger Disposition: DC-01 TO HOME OR SELFCARE Is pt being admited?: No Does the pt Need Aspirin: No Condition: Stable Instructions: Paronychia (ED), Cellulitis (ED) Additional Instructions: Take medications with food, drink plenty of fluids and follow-up with your primary care physician in 7-10 days for reevaluation. Return to the ED immediately if symptoms get worse. Prescriptions: cephALEXin [Keflex] 500 mg PO Q8HR #30 cap Ibuprofen [Motrin] 600 mg PO Q8H PRN #20 tablet PRN Reason: Pain Referrals: PRIMARY CARE, [Primary Care Provider] - 3-5 Days Time of Disposition: 23:50 Print Language: [place]
[2019-05-07 00:25] VITALS: BP 110/62
== END 2019-05-07 00:25 | disposition home or self-care (01) ==
LOC: ED 21:38
DX: L03.011 Cellulitis of right finger (principal); Z79.899 Other long term (current) drug therapy
CPT/HCPCS: 99282

== ENCOUNTER 2021-12-03 03:13 | Emergency (ER) | payer MEDICAID ==
--- NOTE | 2021-12-03 03:26 | Emergency Department Report ---
ED Female HPI - General Chief complaint: Vaginal Bleeding Stated complaint: BLEEDING 6 WKS Source: patient Mode of arrival: Ambulatory Limitations: No Limitations - History of Present Illness Initial comments: Patient is a A0 21-year-old -[place] female who is approximately 6 weeks gestation presents to the ED with acute onset persistent suprapubic pain and vaginal bleeding for the last 3 hours. Patient states that she did an IVF implantation on November 08, 2021. Patient states that the bleeding has been persistent and is spotting. Patient denies dizziness, syncope, nausea and vomiting, low back pain, dysuria, urinary frequency and urgency, vaginal discharge, fever and chills. MD Complaint: vaginal bleeding, pelvic pain -: Sudden, hour(s) (3) Location: suprapubic, other (Vaginal) Radiation: non-radiating Severity: moderate Severity scale (0 -10): 3 Quality: cramping, dull Consistency: intermittent Improves with: none Worsens with: none Are you Now?: Yes (Approximately 5 to 6 weeks gestation) Associated Symptoms: denies other symptoms, vaginal bleeding, abdominal pain (Suprapubic pain). denies: vaginal discharge, nausea/vomiting, fever/chills, headaches, loss of appetite, dysuria, hematuria, rash, shortness of breath, syncope, weakness, other - Related Data Sexually active: Yes : 2 Para: 1 A: 0 Home Medications Medication Instructions Recorded Confirmed Last Taken Vit-Fe Fumar-FA [ 1 tab PO QDAY 12/31/18 02/19/19 02/11/19 Vitamin] Previous Rx's Medication Instructions Recorded Last Taken Type Ibuprofen [Motrin 800 MG tab] 800 mg PO Q6H PRN #30 tablet 02/18/19 Unknown Rx Docusate Sodium [Colace] 100 mg PO BID PRN #60 capsule 02/20/19 Unknown Rx Ferrous Sulfate [Feosol 325 MG tab] 325 mg PO BID #60 tablet 02/20/19 Unknown Rx Ibuprofen [Motrin] 600 mg PO Q8H PRN #20 tablet 05/06/19 Unknown Rx cephALEXin [Keflex] 500 mg PO Q8HR #30 cap 05/06/19 Unknown Rx Allergies Allergy/AdvReac Type Severity Reaction Status Date / Time No Known Allergies Allergy Verified 12/31/18 16:42 ED Review of Systems ROS: Stated complaint: BLEEDING 6 WKS Other details as noted in HPI Constitutional: denies: chills, fever Eyes: denies: eye pain, eye discharge, vision change ENT: denies: ear pain, throat pain Respiratory: denies: cough, shortness of breath, wheezing Cardiovascular: denies: chest pain, palpitations Endocrine: no symptoms reported Gastrointestinal: abdominal pain (Suprapubic pain). denies: nausea, vomiting, diarrhea, hematochezia Genitourinary: abnormal menses (Vaginal bleeding). denies: urgency, dysuria, discharge Musculoskeletal: denies: back pain, joint swelling, arthralgia Skin: denies: rash, lesions Neurological: denies: headache, weakness, paresthesias Psychiatric: denies: anxiety, depression Hematological/Lymphatic: denies: easy bleeding, easy bruising ED Past Medical Hx - Past Medical History Hx Hypertension: No Hx Diabetes: No Hx Deep Vein Thrombosis: No Hx Renal Disease: No Hx Sickle Cell Disease: No Hx Seizures: No Hx Asthma: No Hx HIV: No - Social History Smoking Status: Never Smoker Substance Use Type: None - Medications Home Medications: Home Medications Medication Instructions Recorded Confirmed Last Taken Type Vit-Fe Fumar-FA [ 1 tab PO QDAY 12/31/18 02/19/19 02/11/19 History Vitamin] Ibuprofen [Motrin 800 MG tab] 800 mg PO Q6H PRN #30 tablet 02/18/19 Unknown Rx Docusate Sodium [Colace] 100 mg PO BID PRN #60 capsule 02/20/19 Unknown Rx Ferrous Sulfate [Feosol 325 MG tab] 325 mg PO BID #60 tablet 02/20/19 Unknown Rx Ibuprofen [Motrin] 600 mg PO Q8H PRN #20 tablet 05/06/19 Unknown Rx cephALEXin [Keflex] 500 mg PO Q8HR #30 cap 05/06/19 Unknown Rx ED Physical Exam - General Limitations: No Limitations General appearance: alert, in no apparent distress - Head Head exam: Present: atraumatic, normocephalic, normal inspection - Eye Eye exam: Present: normal appearance, PERRL, EOMI Pupils: Present: normal accommodation - ENT ENT exam: Present: normal exam, normal orophraynx, mucous membranes moist, TM's normal bilaterally, normal external ear exam - Neck Neck exam: Present: normal inspection, full ROM. Absent: tenderness - Respiratory Respiratory exam: Present: normal lung sounds bilaterally. Absent: respiratory distress, wheezes, rales, rhonchi, chest wall tenderness, accessory muscle use - Cardiovascular Cardiovascular Exam: Present: regular rate, normal rhythm, normal heart sounds. Absent: systolic murmur, diastolic murmur, rubs, gallop - GI/Abdominal GI/Abdominal exam: Present: soft, tenderness (Palpable mild suprapubic tenderness), normal bowel sounds. Absent: guarding, rebound, rigid, hyperactive bowel sounds, hypoactive bowel sounds, organomegaly, mass - Bi-manual exam: Present: other (Pelvic exam deferred at this time, patient steroids) - Extremities Exam Extremities exam: Present: normal inspection, full ROM, normal capillary refill. Absent: tenderness - Back Exam Back exam: Present: normal inspection, full ROM. Absent: tenderness, CVA tenderness (R), CVA tenderness (L), muscle spasm, paraspinal tenderness, vertebral tenderness - Neurological Exam Neurological exam: Present: alert, oriented X3, CN II-XII intact, normal gait, reflexes normal - Psychiatric Psychiatric exam: Present: normal affect, normal mood - Skin Skin exam: Present: warm, dry, intact, normal color. Absent: rash ED Medical Decision Making - Lab Data Result diagrams: 12/03/21 03:27 12/03/21 03:27 - Medical Decision Making This is a A0 21-year-old -[place] female who is approximately 6 weeks gestation presents to the ED with acute onset persistent suprapubic pain and vaginal bleeding for the last 3 hours. Patient states that she did an IVF implantation on November 08, 2021. Patient states that the bleeding has been persistent and is spotting. In the ED, patient is alert and oriented x3 and is not in any distress. Patient is hemodynamically stable. Patient was treated for pain with Tylenol. Lab test results were reviewed and are all nonactionable except for significant [place] [id number]. Patient declined to have transvaginal ultrasound, stating that she prefers to have this performed at her [facility] physician's office with whom she has an appointment on December 05, 2021. Patient was therefore discharged home and advised to maintain a complete pelvic rest and follow-up with the [facility] physician as previously scheduled. Patient was advised return to the ED immediately if symptoms get worse. - Differential Diagnosis Ectopic preg, Threatened miscarriage; UTI; subchor bleed; ovarian cyst; Critical care attestation.: If time is entered above; I have spent that time in minutes in the direct care of this critically ill patient, excluding procedure time. ED Disposition Clinical Impression: Threatened miscarriage in early , Vaginal bleeding in , Abdominal pain during in first trimester Disposition: HOME / SELF CARE / HOMELESS Is pt being admited?: No Does the pt Need Aspirin: No Condition: Stable Instructions: Abdominal Pain During , [id number], Threatened Miscarriage, [id number], Vaginal Bleeding During , First Trimester, [id number] Additional Instructions: All lab test results [place] [id number] and significant blood in urine. You thus declined to have the transvaginal ultrasound performed in the ED because you preferred this to be performed at your [facility] physician's office, as scheduled on December 05, 2021. Therefore follow-up with your [facility] physician in 3 to 5 days for reevaluation as previously scheduled. Return to the ED immediately if symptoms get worse. Referrals: RUSLAN DUNBAR MD [Staff Physician] - 3-5 Days Time of Disposition: 05:10 Print Language: ROMANSH
[2021-12-03 04:08] LABS: Basophils # (Auto) 0.1 K/mm3 (0.0-0.1); Basophils % (Auto) 1.1 % (0.0-1.8); Eosinophils # (Auto) 0.1 K/mm3 (0.0-0.4); Eosinophils % (Auto) 1.7 % (0.0-4.3); Hematocrit 39.1 % (30.3-42.9); Hemoglobin 13.2 gm/dl (10.1-14.3); Lymphocytes # (Auto) 2.2 K/mm3 (1.2-5.4); Lymphocytes % (Auto) 44.3 % (13.4-35.0); Mean Corpuscular HGB Conc 34 % (30-34); Mean Corpuscular Volume 89 fl (79-97); Monocytes # (Auto) 0.4 K/mm3 (0.0-0.8); Monocytes % (Auto) 7.3 % (0.0-7.3); Platelet Count 273 K/mm3 (140-440); Red Blood Count 4.38 M/mm3 (3.65-5.03); Red Cell Distribution Width 13.9 % (13.2-15.2)
[2021-12-03 04:11] LABS: Bilirubin,Urine NEG (Negative); Blood,Urine LG (Negative); Calcium Oxalate Crystals,Urine 3+; Color,Urine Red (Yellow); Mucus,Urine 3+ /HPF; Urobilinogen,Urine < 2.0 mg/dL (<2.0)
[2021-12-03 04:20] LABS: RBC,Urine > 182.0 /HPF (0.0-6.0); WBC,Urine < 1.0 /HPF (0.0-6.0)
[2021-12-03 04:29] LABS: Alanine Aminotransferase 10 units/L (7-56); Albumin 3.9 g/dL (3.9-5); BUN/Creatinine Ratio 16; Blood Urea Nitrogen 14 mg/dL (7-17); Calcium 8.9 mg/dL (8.4-10.2); Hemolysis Index 6
[2021-12-03 05:26] VITALS: BP 118/74
== END 2021-12-03 05:25 | disposition home or self-care (01) ==
LOC: ED 03:13
DX: O20.0 Threatened abortion (principal); O26.891 Other specified pregnancy related conditions, first trimester; R10.9 Unspecified abdominal pain; Z3A.01 Less than 8 weeks gestation of pregnancy
CPT/HCPCS: 36415; 80053; 81001; 84702; 85025; 99283